=== PATIENT | female | born 2000 | race Two or more races ===

== ENCOUNTER 2024-07-29 12:02 | Emergency (ER) | payer OTHER ==
[~2024-07-29] VITALS: Ht 165.1 cm; Wt 62.6 kg
[2024-07-29 13:28] VITALS: BP 120/81; O2SAT 100
[2024-07-29 15:34] LABS: HEMATOCRIT 37.5 % (36.0-45.00); HEMOGLOBIN 12.6 g/dL (12.0-15.00); MEAN CELL VOLUME 81.5 fL (80.00-100.00); MEAN CORPUSCULAR HEMOGLOBIN 27.3 pg (27.00-32.0); MEAN CORPUSCULAR HGB CONC 33.5 g/dl (32.0-36.0); PLATELET COUNT 206 K/uL (150-450)
[2024-07-29 15:36] LABS: PH,URINE 5.5 (5.0-8.0); URINE APPEARANCE Clear; URINE BILIRRUBIN Negative (NEGATIVE); URINE BLOOD Moderate; URINE COLOR Yellow; URINE GLUCOSE Negative (NEGATIVE); URINE KETONE Negative (NEGATIVE); URINE LEUKOCYTE Negative; URINE NITRATE Negative; URINE PROTEIN Negative (NEGATIVE)
[2024-07-29 15:44] LABS: URINE BACTERIA 2080.5 uL (0.0-1933); URINE EPITHELIAL CELLS 62.9 uL (0.0-38.8); URINE RBC 8.1 uL (0.0-20.8); URINE WBC 14.4 uL (0.0-23.2)
[2024-07-29 16:17] LABS: URINE CAST 0.14 uL (0.0-1.40)
== END 2024-07-29 18:28 | disposition home or self-care (01) ==
LOC: ER 12:03
PROVIDERS: Emergency Medicine
DX: O20.9 Hemorrhage in early pregnancy, unspecified (principal); O43.891 Other placental disorders, first trimester; Z3A.01 Less than 8 weeks gestation of pregnancy; Z88.8 Allergy status to other drugs, medicaments and biological substances; Z88.0 Allergy status to penicillin; Z91.013 Allergy to seafood

== ENCOUNTER 2024-09-05 13:39 | Emergency (ER) | payer OTHER ==
[~2024-09-05] VITALS: Ht 165.1 cm; Wt 62.1 kg
[2024-09-05 15:03] VITALS: BP 103/68; O2SAT 99
[2024-09-05] MEDS ORDERED: NITROFURANTOIN MACROCRYSTAL 100 MG CAPSULE PO ONE (17:00)
[2024-09-05] MEDS ORDERED: 0.9 % SODIUM CHLORIDE 1,000 ML IV SCH (17:00)
[2024-09-05 17:11] LABS: BASO % 0.2 % (0.1-1.2); EOS # 0.13 (0.04-0.54); EOS % 1.3 % (0.7-7.0); HEMATOCRIT 35.4 % (34.1-44.9); HEMOGLOBIN 12.4 g/dL (11.2-15.7); LYMPH # 1.76 (1.18-3.74); LYMPH % 17.4 % (19.3-53.1); MEAN CORPUSCULAR HEMOGLOBIN 27.9 pg (25.6-32.2); MONO # 1.03 (0.24-0.82); MONO % 10.2 % (4.7-12.5); NEUT # 7.16 (1.56-6.13); NEUT % 70.6 % (34.0-71.1); PLATELET COUNT 213 K/uL (163-369); RED BLOOD COUNT 4.44 M/uL (3.93-5.22); RED CELL DISTRIBUTION WIDTH 13.8 % (11.6-14.4)
[2024-09-05 18:29] LABS: ALBUMIN 3.5 gm/dL (3.4-5.0); BILIRUBIN TOTAL 0.37 mg/dL (0.3-1.2); CALCIUM 8.8 mg/dL (8.5-10.1); CREATININE SERUM 0.58 mg/dL (0.55-1.02); GFR 128.83; GLOBULINA 3.9 G/DL (2.4-3.5); POTASSIUM 4.11 mEq/L (3.5-5.1); TOTAL PROTEIN 7.4 gm/dL (6.4-8.2)
[2024-09-05 18:34] LABS: PH,URINE 6.5 (5.0-8.0); URINE APPEARANCE Cloudy; URINE BILIRRUBIN Negative (NEGATIVE); URINE BLOOD Trace; URINE COLOR Yellow; URINE GLUCOSE Negative (NEGATIVE); URINE KETONE Negative (NEGATIVE); URINE LEUKOCYTE Moderate; URINE NITRATE Positive; URINE PROTEIN Negative (NEGATIVE)
[2024-09-05 18:38] LABS: URINE EPITHELIAL CELLS 89.6 uL (0.0-38.8); URINE RBC 20.4 uL (0.0-20.8); URINE WBC 264.7 uL (0.0-23.2)
[2024-09-05 19:07] LABS: URINE BACTERIA > 9821.5 uL (0.0-1933); URINE CAST 0.58 uL (0.0-1.40)
[2024-09-05] MEDS ORDERED: CEFTRIAXONE SODIUM 1,000 MG VIAL IV ONE (20:30)
[2024-09-05] MEDS ORDERED: CEFTRIAXONE SODIUM 1,000 MG VIAL ONE (20:48)
[2024-09-05] MEDS ORDERED: DIPHENHYDRAMINE HCL 50 MG/ML VIAL 1ML ONE (21:00)
[2024-09-05] MEDS ORDERED: ONDANSETRON HCL 2 MG/ML VIAL ONE (21:00)
[2024-09-05] MEDS ORDERED: METHYLPREDNISOLONE SOD SUCC 125 MG VIAL ONE (21:01)
[2024-09-05] MEDS ORDERED: DIPHENHYDRAMINE HCL 50 MG/ML VIAL 1ML IV ONE (21:15)
[2024-09-05] MEDS ORDERED: METHYLPREDNISOLONE SOD SUCC 125 MG VIAL IV ONE (21:15)
[2024-09-05] MEDS ORDERED: BENADRYL25 MG PO (21:38)
[2024-09-05] MEDS ORDERED: MACROBID 100 M100 MG PO (21:38)
[2024-09-06] MEDS ORDERED: PEPCID AC20 MG PO (19:59)
[2024-09-06] MEDS ORDERED: CLEOCIN HCL300 MG PO (19:59)
[2024-09-06] MEDS ORDERED: INTESTINEX680 M1 PO (19:59)
== END 2024-09-05 22:03 | disposition home or self-care (01) ==
LOC: ER 13:52
PROVIDERS: General Practice
DX: Z34.90 Encounter for supervision of normal pregnancy, unspecified, unspecified trimester (principal); Z3A.12 12 weeks gestation of pregnancy; N39.0 Urinary tract infection, site not specified; R10.2 Pelvic and perineal pain; Z88.0 Allergy status to penicillin
CPT/HCPCS: 36415; 96365; 96366; 99282; J0696; J1200; J3490; J7030

== ENCOUNTER 2024-09-06 16:57 | Emergency (ER) | payer OTHER ==
[~2024-09-06] VITALS: Ht 165.1 cm; Wt 62.1 kg
[~2024-09-06 16:57] MED LIST: BENADRYL25 MG PO; MACROBID 100 M100 MG PO
[2024-09-06] MEDS ORDERED: CLINDAMYCIN PHOSPHATE 150 MG/ML (900mg) ONE (18:11)
[2024-09-06] MEDS ORDERED: CLINDAMYCIN PHOSPHATE 150 MG/ML (900mg) IV ONE (18:15)
[2024-09-06] MEDS ORDERED: ONDANSETRON HCL 2 MG/ML VIAL ONE (18:47)
[2024-09-06] MEDS ORDERED: INTESTINEX680 M1 PO (19:59)
[2024-09-06] MEDS ORDERED: PEPCID AC20 MG PO (19:59)
[2024-09-06] MEDS ORDERED: CLEOCIN HCL300 MG PO (19:59)
== END 2024-09-06 20:13 | disposition home or self-care (01) ==
LOC: ER 17:32
DX: Z34.90 Encounter for supervision of normal pregnancy, unspecified, unspecified trimester (principal); Z3A.12 12 weeks gestation of pregnancy; N39.0 Urinary tract infection, site not specified; Z88.0 Allergy status to penicillin; Z88.3 Allergy status to other anti-infective agents
CPT/HCPCS: 96365; 99282; J3490

== ENCOUNTER 2024-11-01 20:10 | Outpatient (CLI) | payer OTHER ==
[~2024-11-01] VITALS: Ht 165.1 cm; Wt 63.0 kg
[2024-11-01 19:45] VITALS: BP 97/60
[~2024-11-01 20:10] MED LIST changes: +CLEOCIN HCL300 MG PO; +INTESTINEX680 M1 PO; +PEPCID AC20 MG PO
[2024-11-01] MEDS ORDERED: RINGERS SOLUTION,LACTATED 1,000 ML IV SCH (20:30)
[2024-11-01 20:34] LABS: URINE APPEARANCE Clear; URINE BILIRRUBIN Negative (NEGATIVE); URINE BLOOD Negative; URINE COLOR Yellow; URINE GLUCOSE Negative (NEGATIVE); URINE KETONE Trace (NEGATIVE); URINE LEUKOCYTE Negative; URINE NITRATE Negative; URINE PROTEIN Negative (NEGATIVE); URINE UROBILINOGEN 1.0 E.U./dl
[2024-11-01 20:35] LABS: URINE BACTERIA 721.2 uL (0.0-1933); URINE EPITHELIAL CELLS 12.7 uL (0.0-38.8); URINE RBC 4.2 uL (0.0-20.8); URINE WBC 28.6 uL (0.0-23.2)
[2024-11-01 21:02] LABS: BASO % 0.2 % (0.1-1.2); EOS # 0.16 (0.04-0.54); EOS % 1.6 % (0.7-7.0); LYMPH # 1.83 (1.18-3.74); LYMPH % 18.2 % (19.3-53.1); MEAN PLATELET VOLUME 12.50 fl (9.4-12.4); MONO # 1.07 (0.24-0.82); MONO % 10.7 % (4.7-12.5); NEUT # 6.93 (1.56-6.13); NEUT % 69.0 % (34.0-71.1); RED CELL DISTRIBUTION WIDTH 13.4 % (11.6-14.4)
[2024-11-01 21:08] LABS: URINE CAST 0.14 uL (0.0-1.40)
[2024-11-01 23:08] VITALS: BP 100/57
[2024-11-02 03:03] VITALS: BP 90/53
[2024-11-02 07:09] VITALS: BP 96/60
[2024-11-02 10:30] VITALS: BP 96/60
[2024-11-02] MEDS ORDERED: RINGERS SOLUTION,LACTATED 1,000 ML IV SCH (10:45)
[2024-11-02] MEDS ORDERED: PNV,CALCIUM 72/IRON/FOLIC ACID 1 TAB TABLET PO SCH (10:47)
[2024-11-02 11:30] VITALS: BP 105/65
[2024-11-02] MEDS ORDERED: AZITHROMYCIN 500 MG VIAL IV SCH (13:00)
[2024-11-02] MEDS ORDERED: AZITHROMYCIN 500 MG VIAL IV ONE (13:14)
[2024-11-02 15:16] VITALS: BP 95/58
[2024-11-02 19:05] VITALS: BP 98/60
== END 2024-11-02 20:15 | disposition left against medical advice (07) ==
LOC: OBS/DEL 20:10 → LDR 11-02 10:37 → OBS/DEL 11-02 20:15
PROVIDERS: Obstetrics & Gynecology; ATTEND Specialist
DX: O26.892 Other specified pregnancy related conditions, second trimester (principal); Z3A.20 20 weeks gestation of pregnancy

== ENCOUNTER 2025-02-27 01:23 | Inpatient (IN) | payer OTHER ==
[~2025-02-27] VITALS: Ht 165.1 cm; Wt 71.2 kg
[2025-02-27] VITALS (8 sets, daily range): BP systolic 108–133; BP diastolic 67–85
[2025-02-27] MEDS ORDERED: MORPHINE SULFATE 4 MG/ML CARTRIDGE IV STA ×2 (01:28→06:48)
[2025-02-27] MEDS ORDERED: RINGERS SOLUTION,LACTATED 1,000 ML IV SCH (01:30)
[2025-02-27] MEDS ORDERED: PRENATAL TABLE1 EAC1 PO (02:29)
[2025-02-27 02:56] LABS: BASO % 0.3 % (0.1-1.2); EOS # 0.04 (0.04-0.54); EOS % 0.3 % (0.7-7.0); LYMPH # 1.51 (1.18-3.74); LYMPH % 10.2 % (19.3-53.1); MONO # 1.06 (0.24-0.82); MONO % 7.1 % (4.7-12.5); NEUT # 12.17 (1.56-6.13); NEUT % 81.8 % (34.0-71.1); RED CELL DISTRIBUTION WIDTH 14.2 % (11.6-14.4)
[2025-02-27 02:57] LABS: URINE APPEARANCE Cloudy; URINE BILIRRUBIN Small (NEGATIVE); URINE BLOOD Negative; URINE COLOR Dark Yellow; URINE GLUCOSE Negative (NEGATIVE); URINE KETONE Trace (NEGATIVE); URINE LEUKOCYTE Small; URINE NITRATE Negative; URINE PROTEIN 30 (NEGATIVE); URINE UROBILINOGEN 1.0 E.U./dl
[2025-02-27 03:04] LABS: URINE EPITHELIAL CELLS 56.2 uL (0.0-38.8); URINE RBC 7.9 uL (0.0-20.8); URINE WBC 227.7 uL (0.0-23.2)
[2025-02-27 03:16] LABS: INR < 0.93
[2025-02-27 03:21] LABS: ALT/SGPT 88.0 U/L (12-78); AST/SGOT 56.0 U/L (15-37); BILIRUBIN TOTAL 0.55 mg/dL (0.3-1.2); BUN CREA RATIO 14.0 (7.0-25.0); CREATININE SERUM 0.81 mg/dL (0.55-1.02); GFR 87.62; GLOBULINA 4.3 G/DL (2.4-3.5); GLUCOSE FASTING 91.0 mg/dL (65-100); OSMOLALITY SERUM 275.0 MOSM/KG (275-295); URINE CAST 1.17 uL (0.0-1.40)
[2025-02-27] MEDS ORDERED: ERYTHROMYCIN BASE OPHT 1GM EACH TUBE OP ONE ×2 (06:13→09:15)
[2025-02-27] MEDS ORDERED: OXYTOCIN 20 UNITS/1000ML RL PIGGYBAG IV ONE ×2 (06:14→17:50)
[2025-02-27] MEDS ORDERED: CHLORHEXIDINE GLUCONATE 120 ML BOTTLE TOP ONE ×2 (06:14→09:15)
[2025-02-27] MEDS ORDERED: LIDOCAINE HCL 1% 10ML VIAL ONE (06:14)
[2025-02-27] MEDS ORDERED: OXYTOCIN 1,000 ML IV SCH (09:15)
[2025-02-27] MEDS ORDERED: LIDOCAINE HCL 1% 10ML VIAL IJ ONE (09:15)
[2025-02-27] MEDS ORDERED: ACETAMINOPHEN 500 MG GEL..CAP PO PRN (09:15)
[2025-02-27] MEDS ORDERED: BENZOCAINE/MENTHOL 90 ML BOTTLE TOP SCH (13:00)
[2025-02-27] MEDS ORDERED: HYDROCORTISONE 2.5% 30 GM TUBE RECTAL SCH (13:00)
[2025-02-28] VITALS: BP 111/71
[2025-02-28 02:38] LABS: BASO % 0.1 % (0.1-1.2); EOS # 0.01 (0.04-0.54); EOS % 0.1 % (0.7-7.0); LYMPH # 1.68 (1.18-3.74); LYMPH % 11.6 % (19.3-53.1); MONO # 1.47 (0.24-0.82); MONO % 10.1 % (4.7-12.5); NEUT # 11.28 (1.56-6.13); NEUT % 77.7 % (34.0-71.1); RED CELL DISTRIBUTION WIDTH 14.6 % (11.6-14.4)
[2025-02-28] MEDS ORDERED: HYPERRHO S-1500 UNIT IM (06:38)
[2025-02-28 08:00] VITALS: BP 107/68
[2025-02-28] MEDS ORDERED: FF) RHO(D) IMMUNE GLOBULIN (POM) IM NR (09:00)
[2025-02-28 17:33] VITALS: BP 103/66
[2025-03-01 00:26] VITALS: BP 111/64
[2025-03-01 09:11] VITALS: BP 118/78
== END 2025-03-01 19:09 | disposition home or self-care (01) | DRG 807 ==
LOC: OB/GYN 01:23 → LDR 01:23 → OB/GYN 15:08
PROVIDERS: ADMIT Specialist; ATTEND Specialist
PROC: 10E0XZZ Delivery of Products of Conception, External Approach (ICD-10-PCS; principal; 2025-02-27)
PROC: 0W8NXZZ Division of Female Perineum, External Approach (ICD-10-PCS; 2025-02-27)
PROC: 4A1HXCZ Monitoring of Products of Conception, Cardiac Rate, External Approach (ICD-10-PCS; 2025-02-27)
DX: O80 Encounter for full-term uncomplicated delivery (principal); Z37.0 Single live birth; Z3A.37 37 weeks gestation of pregnancy